=== PATIENT | female | born 1995 | race American Indian/Alaskan Native ===

== ENCOUNTER 2016-06-11 07:02 | Emergency (ER) | payer OTHER ==
[2016-06-11 08:29] LABS: Basophils % (Auto) 0.7 % (0.0-1.8); Eosinophils % (Auto) 1.2 % (0.0-4.3); Hemoglobin 12.5 gm/dl (10.1-14.3); Mean Corpuscular HGB Conc 33 % (30-34); Mean Corpuscular Hemoglobin 31 pg (28-32); Mean Corpuscular Volume 93 fl (79-97); Platelet Count 247 K/mm3 (140-440); Red Blood Count 4.08 M/mm3 (3.65-5.03); Red Cell Distribution Width 12.4 % (13.2-15.2); White Blood Count 5.8 K/mm3 (4.5-11.0)
[2016-06-11 09:16] LABS: Bilirubin,Urine NEG (Negative); Blood,Urine SM (Negative); Ketones,Urine NEG (Negative); Leukocyte Esterase,Urine NEG (Negative); Mucus,Urine FEW /HPF; Nitrite,Urine NEG (Negative); Protein,Urine <15 mg/dL mg/dL (Negative); Urobilinogen,Urine < 2.0 mg/dL (<2.0)
--- NOTE | 2016-06-11 10:26 | Ultrasound Report ---
Transabdominal and transvaginal OB ultrasound. History: Vaginal bleeding. Findings: There is a single intrauterine . The pole measures 1.6 cm which would correspond to an 8 week gestation. There is no cardiac activity or motion. There is a small subchorionic hemorrhage. A 1.2 cm cyst is seen in the right ovary. The left ovary is normal. Impression: Sonographic evidence of demise. Comment: These findings were given by telephone to Dr. Garnett at 10:15 AM on April 11, 2016.
--- NOTE | 2016-06-11 11:01 | Emergency Department Report ---
ED Female HPI - General Chief complaint: Vaginal Bleeding Stated complaint: ABD PAIN/VAGINAL BLEEDING Time Seen by Provider: 06/11/16 09:04 Source: patient Mode of arrival: Ambulatory Limitations: No Limitations - History of Present Illness Initial comments: Patient is 11 weeks by dates. She does see lights cycle. She's not had a previous ultrasound. This is her first . She noted some spotting and occasional cramping this morning. She called the hotline. She is directed to the emergency department for evaluation. At this time she does not complain of pain. MD Complaint: vaginal bleeding -: hour(s) Quality: cramping Improves with: none Worsens with: none Are you Now?: Yes (11 weeks) - Related Data Home Medications Medication Instructions Recorded Confirmed Last Taken Vit-Fe Fumar-FA [ 1 tab PO QDAY 06/11/16 06/11/16 06/10/16 Vitamin] 1 tablet Previous Rx's Medication Instructions Recorded Last Taken Type HYDROcodone/APAP 5-325 [[place] 1 each PO Q6HR PRN #10 tablet 06/11/16 Unknown Rx 5/325] Allergies Allergy/AdvReac Type Severity Reaction Status Date / Time No Known Allergies Allergy Unverified 09/21/15 09:08 ED Review of Systems ROS: Stated complaint: ABD PAIN/VAGINAL BLEEDING Other details as noted in HPI Constitutional: denies: chills, fever Eyes: denies: eye pain, eye discharge, vision change ENT: denies: ear pain, throat pain Respiratory: denies: cough, shortness of breath, wheezing Cardiovascular: denies: chest pain, palpitations Endocrine: no symptoms reported Gastrointestinal: denies: abdominal pain, nausea, diarrhea Genitourinary: as per HPI, other. denies: urgency, dysuria, discharge Musculoskeletal: denies: back pain, joint swelling, arthralgia Skin: denies: rash, lesions Neurological: denies: headache, weakness, paresthesias Psychiatric: denies: anxiety, depression Hematological/Lymphatic: denies: easy bleeding, easy bruising ED Past Medical Hx - Past Medical History Hx Hypertension: Yes Additional medical history: chronic CP - Surgical History Past Surgical History?: No - Social History Smoking Status: Never Smoker Substance Use Type: None - Medications Home Medications: Home Medications Medication Instructions Recorded Confirmed Last Taken Type HYDROcodone/APAP 5-325 [[place] 1 each PO Q6HR PRN #10 tablet 06/11/16 Unknown Rx 5/325] Vit-Fe Fumar-FA [ 1 tab PO QDAY 06/11/16 06/11/16 06/10/16 History Vitamin] 1 tablet ED Physical Exam - General Limitations: No Limitations General appearance: alert, in no apparent distress - Head Head exam: Present: atraumatic, normocephalic - Eye Eye exam: Present: normal appearance. Absent: scleral icterus - ENT ENT exam: Present: normal exam, mucous membranes moist - Neck Neck exam: Present: normal inspection - Respiratory Respiratory exam: Present: normal lung sounds bilaterally. Absent: respiratory distress - Cardiovascular Cardiovascular Exam: Present: regular rate, normal rhythm. Absent: systolic murmur, diastolic murmur, rubs, gallop - GI/Abdominal GI/Abdominal exam: Present: soft, normal bowel sounds. Absent: distended, tenderness, guarding, rebound, rigid - Extremities Exam Extremities exam: Present: normal inspection - Back Exam Back exam: Present: normal inspection - Neurological Exam Neurological exam: Present: alert, oriented X3, CN II-XII intact. Absent: motor sensory deficit - Psychiatric Psychiatric exam: Present: normal affect, normal mood - Skin Skin exam: Present: warm, dry, intact, normal color. Absent: rash ED Course Vital Signs 06/11/16 06/11/16 07:38 08:19 Temperature 98.3 F 98 F Pulse Rate 79 80 Respiratory 18 16 Rate Blood Pressure 132/61 Blood Pressure 118/58 [Left] O2 Sat by Pulse 100 99 Oximetry ED Medical Decision Making - Lab Data Result diagrams: 06/11/16 07:48 - Radiology Data interpreted by me: Ultrasound showed demise at 8 weeks. Small subchorionic hemorrhage. No other findings. Critical care attestation.: If time is entered above; I have spent that time in minutes in the direct care of this critically ill patient, excluding procedure time. ED Disposition Clinical Impression: Inevitable , demise Disposition: DISCHARGED TO HOME OR SELFCARE Is pt being admited?: No Does the pt Need Aspirin: No Condition: Stable Instructions: Spontaneous Miscarriage (ED) Additional Instructions: There should be additional vaginal bleeding associated with spontaneous . Return to the emergency department if you have profuse bleeding significant pain or any acute change. Otherwise follow-up with your nailer machine. Prescriptions: HYDROcodone/APAP 5-325 [[place] 5/325] 1 each PO Q6HR PRN #10 tablet PRN Reason: Pain [facility]errals: [facility] [Other] - 3-5 Days [facility] [Provider Group] - 2-3 Days Time of Disposition: 11:00
[2016-06-11 11:18] VITALS: BP 120/71
== END 2016-06-11 11:16 | disposition home or self-care (01) ==
LOC: ED 07:02
DX: O03.9 Complete or unspecified spontaneous abortion without complication (principal); O36.4XX0 Maternal care for intrauterine death, not applicable or unspecified; I10 Essential (primary) hypertension
CPT/HCPCS: 36415; 76801; 76817; 81001; 84702; 85025; 86850; 86900; 86901

== ENCOUNTER 2016-09-05 07:50 | Emergency (ER) | payer OTHER ==
[2016-09-05 08:02] VITALS: BP 125/74
[2016-09-05 08:20] LABS: Basophils % (Auto) 0.5 % (0.0-1.8); Eosinophils % (Auto) 1.2 % (0.0-4.3); Hemoglobin 13.1 gm/dl (10.1-14.3); Mean Corpuscular HGB Conc 34 % (30-34); Mean Corpuscular Hemoglobin 31 pg (28-32); Mean Corpuscular Volume 94 fl (79-97); Platelet Count 234 K/mm3 (140-440); Red Blood Count 4.17 M/mm3 (3.65-5.03); Red Cell Distribution Width 12.2 % (13.2-15.2); White Blood Count 5.1 K/mm3 (4.5-11.0)
[2016-09-05 08:36] LABS: Anion Gap 16 mmol/L; BUN/Creatinine Ratio 11.11; Blood Urea Nitrogen 10 mg/dL (7-17); Calcium 9.2 mg/dL (8.4-10.2); Carbon Dioxide 26 mmol/L (22-30); Chloride 102.4 mmol/L (98-107); Glucose 93 mg/dL (65-100); Potassium 4.2 mmol/L (3.6-5.0); Sodium 140 mmol/L (137-145)
--- NOTE | 2016-09-05 09:07 | Emergency Department Report ---
ED Chest Pain HPI - General Chief Complaint: Chest Pain Stated Complaint: CHEST PAIN Time Seen by Provider: 09/05/16 09:06 Source: patient Mode of arrival: Ambulatory Limitations: No Limitations - History of Present Illness Initial Comments: The patient was here in September 2015 she states for similar chest pain. She describes a soreness which involves her left lower costal area and her left subscapular area. The pain is not pleuritic and it is not radiating. She states that she notices it when she "gets up". It is not related to breathing. There is no dyspnea. She denies any other associated symptoms to include dizziness nausea vomiting sweating. She has no unusual cough. She's had no leg pain and no recent travel. She's had a previous negative d-dimer for similar such chest pain. MD Complaint: chest pain -: year(s) Onset: during rest Pain Location: left chest Severity: mild, moderate Quality: other (soreness) Consistency: intermittent, now resolved Improves With: remaining still Worsens With: other (getting up) re: denies: nausea, vomting, diaphoresis, dyspnea, sense of impending doom Other Symptoms: denies: cough, fever, syncope Treatments Prior to Arrival: none Aspirin use within the Past 7 Days: (0) No - Related Data On Oral Contraceptives: No Home Medications Medication Instructions Recorded Confirmed Last Taken Vit-Fe Fumar-FA [ 1 tab PO QDAY 06/11/16 06/11/16 06/10/16 Vitamin] 1 tablet Previous Rx's Medication Instructions Recorded Last Taken Type HYDROcodone/APAP 5-325 [[place] 1 each PO Q6HR PRN #10 tablet 06/11/16 Unknown Rx 5/325] traMADol [Ultram] 50 mg PO Q6HR PRN #10 tablet 09/05/16 Unknown Rx Allergies Allergy/AdvReac Type Severity Reaction Status Date / Time No Known Allergies Allergy Unverified 09/21/15 09:08 Heart Score - HEART Score History: Slightly suspicious EKG: Normal Age: < 45 Risk factors: No known risk factors Troponin: < normal limit HEART Score: 0 - Critical Actions Critical Actions: 0-3 pts:0.9-1.7%risk of adverse cardiac event.Candidate for discharge ED Review of Systems ROS: Stated complaint: CHEST PAIN Other details as noted in HPI Constitutional: denies: chills, fever Eyes: denies: eye pain, eye discharge, vision change ENT: denies: ear pain, throat pain Respiratory: denies: cough, shortness of breath, wheezing Cardiovascular: as per HPI, chest pain. denies: palpitations Endocrine: no symptoms reported Gastrointestinal: denies: abdominal pain, nausea, diarrhea Genitourinary: denies: urgency, dysuria, discharge Musculoskeletal: denies: back pain, joint swelling, arthralgia Skin: denies: rash, lesions Neurological: denies: headache, weakness, paresthesias Psychiatric: denies: anxiety, depression Hematological/Lymphatic: denies: easy bleeding, easy bruising ED Past Medical Hx - Past Medical History Previous Medical History?: No Hx Hypertension: Yes Additional medical history: chronic CP - Surgical History Past Surgical History?: No - Social History Smoking Status: Never Smoker Substance Use Type: None - Medications Home Medications: Home Medications Medication Instructions Recorded Confirmed Last Taken Type HYDROcodone/APAP 5-325 [[place] 1 each PO Q6HR PRN #10 tablet 06/11/16 Unknown Rx 5/325] Vit-Fe Fumar-FA [ 1 tab PO QDAY 06/11/16 06/11/16 06/10/16 History Vitamin] 1 tablet traMADol [Ultram] 50 mg PO Q6HR PRN #10 tablet 09/05/16 Unknown Rx ED Physical Exam - General Limitations: No Limitations General appearance: alert, in no apparent distress - Head Head exam: Present: atraumatic, normocephalic - Eye Eye exam: Present: normal appearance. Absent: scleral icterus - ENT ENT exam: Present: mucous membranes moist - Neck Neck exam: Present: normal inspection. Absent: tenderness, meningismus - Respiratory Respiratory exam: Present: normal lung sounds bilaterally, chest wall tenderness (mildly posteriorly). Absent: respiratory distress - Cardiovascular Cardiovascular Exam: Present: regular rate, normal rhythm. Absent: systolic murmur, diastolic murmur, rubs, gallop - GI/Abdominal GI/Abdominal exam: Present: soft, normal bowel sounds. Absent: distended, tenderness, guarding, rebound, rigid - Extremities Exam Extremities exam: Present: normal inspection - Back Exam Back exam: Present: normal inspection - Neurological Exam Neurological exam: Present: alert, oriented X3, CN II-XII intact. Absent: motor sensory deficit - Psychiatric Psychiatric exam: Present: normal affect, normal mood - Skin Skin exam: Present: warm, dry, intact, normal color. Absent: rash ED Course Vital Signs 09/05/16 07:58 Temperature 98.6 F Pulse Rate 80 Respiratory 14 Rate Blood Pressure 125/74 O2 Sat by Pulse 100 Oximetry - Reevaluation(s) Reevaluation #1: Patient presents again with atypical chest pain perhaps chest wall inflammation. I do not see any indication for further workup at this time. She is referred to primary care. 09/05/16 09:32 ED Medical Decision Making - Lab Data Result diagrams: 09/05/16 08:11 09/05/16 08:11 Laboratory Results - last 24 hr 09/05/16 09/05/16 09/05/16 08:11 08:11 08:11 WBC 5.1 RBC 4.17 Hgb 13.1 Hct 39.0 MCV 94 MCH 31 MCHC 34 RDW 12.2 L Plt Count 234 Lymph % (Auto) 24.6 Jewell % (Auto) 8.9 H Eos % (Auto) 1.2 Baso % (Auto) 0.5 Lymph # 1.2 Jewell # 0.5 Eos # 0.1 Baso # 0.0 Seg Neutrophils % 64.8 Seg Neutrophils # 3.3 Sodium 140 Potassium 4.2 Chloride 102.4 Carbon Dioxide 26 Anion Gap 16 BUN 10 Creatinine 0.9 Estimated GFR > 60 BUN/Creatinine Ratio 11.11 Glucose 93 Calcium 9.2 Troponin T < 0.010 HCG, Qual Negative - EKG Data -: EKG Interpreted by Me EKG shows normal: sinus rhythm, axis, intervals, QRS complexes, ST-T waves Rate: normal - EKG Data Interpretation: normal EKG Critical care attestation.: If time is entered above; I have spent that time in minutes in the direct care of this critically ill patient, excluding procedure time. ED Disposition Clinical Impression: Atypical chest pain Disposition: DC-01 TO HOME OR SELFCARE Is pt being admited?: No Does the pt Need Aspirin: No Condition: Stable Instructions: Chest Pain (ED) Additional Instructions: Follow-up with her primary care provider. Return any acute change or problem. Prescriptions: traMADol [Ultram] 50 mg PO Q6HR PRN #10 tablet PRN Reason: Pain Referrals: PRIMARY CARE, [Primary Care Provider] - 3-5 Days Time of Disposition: 09:33
[2016-09-05 11:35] LABS: Bacteria,Urine 1+ /HPF (Negative); Bilirubin,Urine NEG (Negative); Blood,Urine SM (Negative); Ketones,Urine NEG (Negative); Leukocyte Esterase,Urine LG (Negative); Mucus,Urine FEW /HPF; Nitrite,Urine NEG (Negative); Protein,Urine <15 mg/dL mg/dL (Negative); Urobilinogen,Urine < 2.0 mg/dL (<2.0)
== END 2016-09-05 10:10 | disposition home or self-care (01) ==
LOC: ED 07:50
DX: R07.89 Other chest pain (principal); I10 Essential (primary) hypertension
CPT/HCPCS: 36415; 80048; 81001; 84484; 84703; 85025; 93005; 93010